=== PATIENT | female | born 1990 | race Caucasian/White ===

== ENCOUNTER 2017-06-05 18:43 | Inpatient (IN) | payer BC, MEDICAID, OTHER, SELFPAY ==
[~2017-06-05] VITALS: Ht 170.2 cm; Wt 62.0 kg
[2017-06-05] MEDS ORDERED: SODIUM CHLORIDE FLUSH 10ML SYR IVF ONE (19:00)
[2017-06-05] MEDS ORDERED: SODIUM CHLORIDE 0.9% 1,000ML IV ONE (19:00)
[2017-06-05] MEDS ORDERED: ONDANSETRON 2MG/ML, 2ML IVPush ONE (19:00)
[2017-06-05] MEDS ORDERED: ONDANSETRON 2MG/ML, 2ML ONE (19:22)
[2017-06-05] MEDS ORDERED: MORPHINE SULFATE 4 MG/ML, 1ML ONE ×2 (19:22→21:03)
[2017-06-05] MEDS: MORPHINE SULFATE 4 MG/ML, 1ML IVPush PRN ×2 (19:26→21:14)
[2017-06-05 19:27] LABS: HEMATOCRIT 41.3 % (34.6-47.8)
[2017-06-05 19:40] LABS: BLOOD UREA NITROGEN 11 mg/dL (7-18)
[2017-06-05] MEDS ORDERED: KETOROLAC 30 MG/1 ML ONE (21:03)
[2017-06-05] MEDS ORDERED: KETOROLAC 30 MG/1 ML IVPush ONE (21:30)
[2017-06-05] MEDS ORDERED: SODIUM CHLORIDE 0.9% 1,000ML IVBOLUS ONE (23:00)
[2017-06-06] MEDS ORDERED: OXYcodone/APAP 5/325MG TABLET PO ONE ×2 (02:00→03:00)
[2017-06-06] MEDS ORDERED: PROMETHAZINE 25MG TABLET PO PRN (02:00)
[2017-06-06] MEDS ORDERED: OXYcodone/APAP 5/325MG TABLET ONE ×2 (02:01→02:50)
[2017-06-06] MEDS ORDERED: ONDANSETRON ODT 4 MG ONE (02:51)
[2017-06-06] MEDS ORDERED: ONDANSETRON 4 MG TABLET PO ONE (03:00)
[2017-06-06 04:18] VITALS: BP 125/84
[2017-06-06 04:30] VITALS: BP 125/84
[2017-06-06] MEDS ORDERED: AMPH15TA PO (04:53)
[2017-06-06] MEDS ORDERED: MORPHINE SULFATE 4 MG/ML, 1ML IVPush PRN (05:30)
[2017-06-06] MEDS: ENOXAPARIN 40 MG/0.4 ML SQ SCH (06:00)
[2017-06-06] MEDS ORDERED: METOCLOPRAMIDE 5 MG/ML, 2ML IVPush PRN (06:00)
[2017-06-06] MEDS ORDERED: PROMETHAZINE 25 MG/ML, 1ML IM PRN (06:00)
[2017-06-06] MEDS ORDERED: POLYETHYLENE GLYCOL 17 GM PACKET PO PRN (06:00)
[2017-06-06] MEDS ORDERED: HYDROcodone/APAP 5/325 TABLET PO PRN (06:00)
[2017-06-06] MEDS ORDERED: ACETAMINOPHEN 325 MG TABLET PO PRN (06:00)
[2017-06-06] MEDS ORDERED: BISACODYL 10 MG SUPP PR PRN (06:00)
[2017-06-06] MEDS: SODIUM CHLORIDE 0.9% 1,000 ML IV SCH ×3 (06:16→20:22)
[2017-06-06] MEDS: ONDANSETRON 2MG/ML, 2ML IVPush PRN ×3 (06:16→23:51)
[2017-06-06 06:25] LABS: HEMATOCRIT 35.5 % (34.6-47.8); WHITE BLOOD COUNT 8.6 x10^3/uL (3.4-10)
[2017-06-06] MEDS: CEFTRIAXONE PMX 1GM/50ML 50 ML IV SCH (06:33)
[2017-06-06 06:35] LABS: ASPARTATE AMINO TRANSFERASE 8 U/L (15-37); BLOOD UREA NITROGEN 6 mg/dL (7-18)
[2017-06-06] MEDS ORDERED: MORPHINE SULFATE 4 MG/ML, 1ML ONE (07:17)
[2017-06-06] MEDS: MORPHINE SULFATE 4 MG/ML, 1ML IVPush PRN ×2 (07:23→23:51)
[2017-06-06 08:38] VITALS: BP 107/70
[2017-06-06] MEDS: PHENAZOPYRIDINE 100 MG TABLET PO SCH ×3 (09:27→20:21)
[2017-06-06] MEDS: POTASSIUM CHLORIDE 20 MEQ TAB.ER.PRT PO SCH ×3 (09:27→20:21)
[2017-06-06] MEDS: KETOROLAC 30 MG/1 ML IVPush PRN ×2 (13:32→20:22)
[2017-06-06 14:16] VITALS: BP 111/76
[2017-06-06] MEDS ORDERED: DIPHENHYDRAMINE 50 MG/ML, 1ML IVPush PRN (17:30)
[2017-06-06 18:51] VITALS: BP 123/81
[2017-06-07 00:45] VITALS: BP 133/88
[2017-06-07] MEDS: SODIUM CHLORIDE 0.9% 1,000 ML IV SCH ×3 (02:12→16:03)
[2017-06-07] MEDS: KETOROLAC 30 MG/1 ML IVPush PRN ×3 (03:49→23:30)
[2017-06-07] MEDS: CEFTRIAXONE PMX 1GM/50ML 50 ML IV SCH (04:50)
[2017-06-07] MEDS: ENOXAPARIN 40 MG/0.4 ML SQ SCH (04:50)
[2017-06-07 05:32] LABS: BLOOD UREA NITROGEN 3 mg/dL (7-18)
[2017-06-07 08:05] VITALS: BP 123/77
[2017-06-07] MEDS: POTASSIUM CHLORIDE 20 MEQ TAB.ER.PRT PO SCH (08:52)
[2017-06-07] MEDS: PHENAZOPYRIDINE 100 MG TABLET PO SCH ×3 (08:53→23:16)
[2017-06-07] MEDS: ONDANSETRON 2MG/ML, 2ML IVPush PRN ×2 (08:58→16:11)
[2017-06-07] MEDS: MORPHINE SULFATE 4 MG/ML, 1ML IVPush PRN ×3 (08:58→21:09)
[2017-06-07] MEDS ORDERED: OMNIPAQUE 350 MG/ML, 100ML BOTTLE ONE (09:23)
[2017-06-07 15:34] VITALS: BP 140/76
[2017-06-07 19:25] VITALS: BP 117/79
[2017-06-07 21:45] LABS: PATH.CAST-FLAG NOT PRESENT; SPERM-FLAG NOT PRESENT; SRC-FLAG NOT PRESENT; XTAL-FLAG NOT PRESENT; YLC-FLAG NOT PRESENT
[2017-06-08] MEDS: SODIUM CHLORIDE 0.9% 1,000 ML IV SCH ×3 (00:58→23:02)
[2017-06-08 01:23] VITALS: BP 115/78
[2017-06-08] MEDS: MORPHINE SULFATE 4 MG/ML, 1ML IVPush PRN ×3 (01:55→16:36)
[2017-06-08] MEDS: ENOXAPARIN 40 MG/0.4 ML SQ SCH (05:41)
[2017-06-08] MEDS: CEFTRIAXONE PMX 1GM/50ML 50 ML IV SCH (05:41)
[2017-06-08] MEDS: KETOROLAC 30 MG/1 ML IVPush PRN ×3 (05:47→20:48)
[2017-06-08 07:02] VITALS: BP 111/71
[2017-06-08] MEDS: PHENAZOPYRIDINE 100 MG TABLET PO SCH ×3 (08:15→23:02)
[2017-06-08 09:20] LABS: BLOOD UREA NITROGEN 7 mg/dL (7-18)
[2017-06-08] MEDS ORDERED: GADOBUTROL 7.5 MMOL/7.5 ML PFS ONE (12:03)
[2017-06-08] MEDS: ONDANSETRON 2MG/ML, 2ML IVPush PRN (12:43)
[2017-06-08 15:40] VITALS: BP 116/79
[2017-06-08] MEDS: OPIUM/BELLADONNA SUPP.RECT 16.2-30 MG PR PRN ×2 (17:39→23:02)
[2017-06-08 19:19] VITALS: BP 119/72
[2017-06-09] MEDS: MORPHINE SULFATE 4 MG/ML, 1ML IVPush PRN ×2 (00:26→09:36)
[2017-06-09 01:15] VITALS: BP 121/74
[2017-06-09] MEDS: KETOROLAC 30 MG/1 ML IVPush PRN ×2 (04:21→12:52)
[2017-06-09] MEDS: SODIUM CHLORIDE 0.9% 1,000 ML IV SCH ×3 (05:20→20:03)
[2017-06-09] MEDS: CEFTRIAXONE PMX 1GM/50ML 50 ML IV SCH (05:20)
[2017-06-09] MEDS: OPIUM/BELLADONNA SUPP.RECT 16.2-30 MG PR PRN ×4 (05:20→21:17)
[2017-06-09] MEDS: ENOXAPARIN 40 MG/0.4 ML SQ SCH (05:28)
[2017-06-09 06:47] VITALS: BP 120/79
[2017-06-09] MEDS: PHENAZOPYRIDINE 100 MG TABLET PO SCH ×3 (09:20→20:58)
[2017-06-09] MEDS: ONDANSETRON 2MG/ML, 2ML IVPush PRN ×2 (09:36→21:17)
[2017-06-09 12:55] VITALS: BP 125/80
[2017-06-09] MEDS ORDERED: TAMSULOSIN 0.4 MG CAP.ER.24H PO ONE (16:00)
[2017-06-09 18:22] VITALS: BP 144/97
[2017-06-09] MEDS: OXYcodone/APAP 5/325MG TABLET PO PRN (20:58)
[2017-06-09] MEDS ORDERED: ALBUTEROL SULFATE 2.5 MG/3 ML ONE (23:18)
[2017-06-10 00:12] VITALS: BP 120/74
[2017-06-10] MEDS: KETOROLAC 30 MG/1 ML IVPush PRN ×3 (00:30→16:36)
[2017-06-10] MEDS: SODIUM CHLORIDE 0.9% 1,000 ML IV SCH ×2 (02:56→12:14)
[2017-06-10] MEDS: CEFTRIAXONE PMX 1GM/50ML 50 ML IV SCH (05:31)
[2017-06-10] MEDS: OXYcodone/APAP 5/325MG TABLET PO PRN ×2 (05:33→12:14)
[2017-06-10] MEDS: ENOXAPARIN 40 MG/0.4 ML SQ SCH (05:35)
[2017-06-10] MEDS: OPIUM/BELLADONNA SUPP.RECT 16.2-30 MG PR PRN ×3 (06:22→16:36)
[2017-06-10 08:07] VITALS: BP 129/83
[2017-06-10] MEDS: PHENAZOPYRIDINE 100 MG TABLET PO SCH ×2 (08:27→16:36)
[2017-06-10] MEDS ORDERED: TAMSULOSIN 0.4 MG CAP.ER.24H PO SCH (09:00)
[2017-06-10] MEDS ORDERED: KETO10TA PO (13:36)
[2017-06-10] MEDS ORDERED: OXYC1TAB7 PO (13:36)
[2017-06-10] MEDS ORDERED: CEFD300C37 PO (13:36)
[2017-06-10] MEDS ORDERED: TAMS-11 PO (13:36)
[2017-06-10] MEDS ORDERED: PHEN-582 PO (13:36)
[2017-06-10] MEDS ORDERED: OPIU1SUP2 PR (13:36)
[2017-06-10 14:00] VITALS: BP 125/81
[2017-06-10] MEDS ORDERED: ACETAMINOPHEN 325 MG TABLET PO PRN (19:30)
[2017-06-10] MEDS ORDERED: POLYETHYLENE GLYCOL 17 GM PACKET PO PRN (19:30)
[2017-06-10] MEDS ORDERED: HYDROcodone/APAP 5/325 TABLET PO PRN (19:30)
[2017-06-10] MEDS ORDERED: BISACODYL 10 MG SUPP PR PRN (19:30)
[2017-06-10] MEDS ORDERED: ALBUTEROL SULFATE 2.5 MG/3 ML NPPB PRN ×2 (19:30)
[2017-06-10] MEDS ORDERED: PROMETHAZINE 25 MG/ML, 1ML IM PRN (19:30)
== END 2017-06-10 19:20 | disposition home or self-care (01) | DRG 690 ==
LOC: ED 23:59 → EDIP 06-06 03:40 → UNDOADMIN 06-06 03:40 → EDIP 06-06 03:42 → 3NE 06-06 04:11
PROVIDERS: ADMIT Internal Medicine
PROC: 0T9B30Z Drainage of Bladder with Drainage Device, Percutaneous Approach (ICD-10-PCS; principal; 2017-06-07)
DX: N10 Acute pyelonephritis (principal); E44.0 Moderate protein-calorie malnutrition; N30.00 Acute cystitis without hematuria; E87.6 Hypokalemia; D72.829 Elevated white blood cell count, unspecified; Z68.21 Body mass index [BMI] 21.0-21.9, adult; Z88.8 Allergy status to other drugs, medicaments and biological substances; Z91.040 Latex allergy status
CPT/HCPCS: 36415; 51702; 72157; 72158; 74176; 74177; 76830; 80048; 80053; 81001; 81003; 82040; 83735; 84100; 84703; 85025; 87086; 94640; 96361; 96374; 96375; 96376; A9585; J0696; J1885; J2405; Q0162; Q9967; J1200; J2765; J7030

== ENCOUNTER 2017-06-25 19:01 | Inpatient (IN) | payer BC ==
[~2017-06-25] VITALS: Ht 170.2 cm; Wt 64.5 kg
[~2017-06-25 19:01] MED LIST: AMPH15TA PO; CEFD300C37 PO; KETO10TA PO; OPIU1SUP2 PR; OXYC1TAB7 PO; PHEN-582 PO; TAMS-11 PO
[2017-06-25] MEDS ORDERED: KETOROLAC 30 MG/1 ML IVPush ONE (20:30)
[2017-06-25] MEDS ORDERED: SODIUM CHLORIDE 0.9% 1,000ML IVBOLUS ONE (20:30)
[2017-06-25] MEDS ORDERED: KETOROLAC 30 MG/1 ML ONE (20:31)
[2017-06-25] MEDS ORDERED: HYDROmorphone 1 MG/ML, 1ML ONE ×2 (20:31→21:51)
[2017-06-25] MEDS: HYDROmorphone 2 MG/ML, 1ML IVPush PRN ×2 (20:48→21:57)
[2017-06-25] MEDS ORDERED: ONDANSETRON 2MG/ML, 2ML IVPush ONE (21:00)
[2017-06-25] MEDS ORDERED: ONDANSETRON 2MG/ML, 2ML ONE (21:18)
[2017-06-25 21:50] LABS: BLOOD UREA NITROGEN 11 mg/dL (7-18)
[2017-06-25] MEDS ORDERED: OPIUM/BELLADONNA SUPP.RECT 16.2-30 MG PR ONE (22:00)
[2017-06-25] MEDS ORDERED: LABETALOL 5MG/ML, 20ML IVPush PRN (23:00)
[2017-06-25] MEDS ORDERED: OXYcodone IR 5MG TABLET PO PRN (23:00)
[2017-06-25] MEDS ORDERED: DOCUSATE 100 MG CAPSULE PO PRN (23:00)
[2017-06-25] MEDS ORDERED: TEMAZEPAM 15 MG CAPSULE PO PRN (23:00)
[2017-06-25] MEDS ORDERED: ACETAMINOPHEN 325 MG TABLET PO PRN (23:00)
[2017-06-25 23:30] VITALS: BP 120/80
[2017-06-26] MEDS ORDERED: OPIUM/BELLADONNA SUPP.RECT 16.2-30 MG PR PRN (00:30)
[2017-06-26] MEDS: OPIUM/BELLADONNA SUPP.RECT 16.2-30 MG PR PRN ×5 (00:32→23:02)
[2017-06-26] MEDS: CEFTRIAXONE PMX 1GM/50ML 50 ML IV SCH (00:34)
[2017-06-26] MEDS: FAMOTIDINE 20 MG/2 ML IVPush SCH ×2 (00:35→08:33)
[2017-06-26] MEDS: morphine SULFATE 10 MG/ML, 1ML IVPush PRN ×5 (01:09→20:52)
[2017-06-26] MEDS: ONDANSETRON 2MG/ML, 2ML IVPush PRN ×3 (01:09→14:32)
[2017-06-26] MEDS ORDERED: OXYB5TAB7 PO (01:22)
[2017-06-26 05:34] LABS: HEMATOCRIT 33.8 % (34.6-47.8); HEMOGLOBIN 11.6 g/dL (11.7-16.4)
[2017-06-26 05:48] LABS: ASPARTATE AMINO TRANSFERASE 12 U/L (15-37); BLOOD UREA NITROGEN 9 mg/dL (7-18)
[2017-06-26 07:13] VITALS: BP 115/74
[2017-06-26] MEDS: TAMSULOSIN 0.4 MG CAP.ER.24H PO SCH ×2 (08:33→20:08)
[2017-06-26] MEDS: SENNA/DOCUSATE TABLET PO SCH (08:49)
[2017-06-26] MEDS: SODIUM CHLORIDE 0.9% 1,000 ML IV SCH (10:00)
[2017-06-26 15:30] VITALS: BP 123/89
[2017-06-26] MEDS ORDERED: HYDROcodone/APAP 5/325 TABLET PO PRN (16:30)
[2017-06-26] MEDS: ONDANSETRON ODT 4 MG PO PRN (17:53)
[2017-06-26] MEDS: PHENAZOPYRIDINE 100 MG TABLET PO SCH ×2 (18:18→21:30)
[2017-06-26 20:22] VITALS: BP 102/64
[2017-06-26] MEDS ORDERED: MORPHINE SULFATE 4 MG/ML, 1ML ONE (20:50)
[2017-06-26] MEDS: OXYBUTYNIN CHLORIDE 5 MG TABLET PO SCH (21:30)
[2017-06-26] MEDS: FAMOTIDINE 20 MG TABLET PO SCH (22:54)
[2017-06-26] MEDS: OXYcodone/APAP 5/325MG TABLET PO PRN (22:54)
[2017-06-26] MEDS ORDERED: LIDOCAINE GEL 2%, 5ML TP ONE (23:00)
[2017-06-27] MEDS: CEFTRIAXONE PMX 1GM/50ML 50 ML IV SCH ×2 (00:15→23:13)
[2017-06-27] MEDS ORDERED: MORPHINE SULFATE 4 MG/ML, 1ML ONE ×2 (01:45→06:11)
[2017-06-27] MEDS: morphine SULFATE 10 MG/ML, 1ML IVPush PRN ×5 (01:48→23:00)
[2017-06-27 03:10] VITALS: BP 90/53
[2017-06-27] MEDS: OPIUM/BELLADONNA SUPP.RECT 16.2-30 MG PR PRN ×3 (05:17→20:34)
[2017-06-27] MEDS: OXYcodone/APAP 5/325MG TABLET PO PRN ×3 (05:19→11:40)
[2017-06-27] MEDS: SODIUM CHLORIDE 0.9% 1,000 ML IV SCH ×2 (05:22→19:00)
[2017-06-27 07:37] VITALS: BP 102/67
[2017-06-27] MEDS: FAMOTIDINE 20 MG TABLET PO SCH ×2 (08:12→20:34)
[2017-06-27] MEDS: OXYBUTYNIN CHLORIDE 5 MG TABLET PO SCH ×3 (08:12→20:34)
[2017-06-27] MEDS: PHENAZOPYRIDINE 100 MG TABLET PO SCH ×3 (08:13→20:35)
[2017-06-27] MEDS: CETIRIZINE 10 MG TABLET PO SCH (08:13)
[2017-06-27] MEDS: SENNA/DOCUSATE TABLET PO SCH (08:13)
[2017-06-27] MEDS: TAMSULOSIN 0.4 MG CAP.ER.24H PO SCH ×2 (08:13→20:34)
[2017-06-27 13:23] VITALS: BP 111/71
[2017-06-27] MEDS ORDERED: OXYcodone IR 5MG TABLET PO PRN (14:30)
[2017-06-27] MEDS: OXYcodone IR 5MG TABLET PO PRN ×3 (15:22→20:35)
[2017-06-27] MEDS: ONDANSETRON ODT 4 MG PO PRN (15:24)
[2017-06-27 19:35] VITALS: BP 109/73
[2017-06-27] MEDS: ONDANSETRON 2MG/ML, 2ML IVPush PRN (23:13)
[2017-06-28] MEDS: OXYcodone IR 5MG TABLET PO PRN ×2 (00:58→05:05)
[2017-06-28 01:21] VITALS: BP 106/67
[2017-06-28] MEDS: morphine SULFATE 10 MG/ML, 1ML IVPush PRN ×6 (02:57→21:58)
[2017-06-28] MEDS: OPIUM/BELLADONNA SUPP.RECT 16.2-30 MG PR PRN ×2 (02:57→20:14)
[2017-06-28 06:55] VITALS: BP 115/72
[2017-06-28] MEDS: FAMOTIDINE 20 MG TABLET PO SCH ×2 (08:35→20:14)
[2017-06-28] MEDS: PHENAZOPYRIDINE 100 MG TABLET PO SCH ×3 (08:35→20:14)
[2017-06-28] MEDS: TAMSULOSIN 0.4 MG CAP.ER.24H PO SCH ×2 (08:35→20:14)
[2017-06-28] MEDS: CETIRIZINE 10 MG TABLET PO SCH (08:36)
[2017-06-28] MEDS: SENNA/DOCUSATE TABLET PO SCH (08:36)
[2017-06-28] MEDS: OXYBUTYNIN CHLORIDE 5 MG TABLET PO SCH ×3 (08:36→20:15)
[2017-06-28] MEDS: ONDANSETRON 2MG/ML, 2ML IVPush PRN ×3 (08:36→18:42)
[2017-06-28] MEDS: SODIUM CHLORIDE 0.9% 1,000 ML IV SCH ×2 (08:44→21:40)
[2017-06-28] MEDS ORDERED: OxyconTIN ER 10 MG TAB.ER PO SCH (09:00)
[2017-06-28] MEDS ORDERED: MAGNESIUM CITRATE 300ML ORAL SOL PO PRN (09:00)
[2017-06-28] MEDS ORDERED: ONDANSETRON 2MG/ML, 2ML IVPush ONE (11:00)
[2017-06-28] MEDS ORDERED: PROMETHAZINE 25 MG/ML, 1ML IM ONE (11:00)
[2017-06-28] MEDS ORDERED: PROMETHAZINE 25 MG/ML, 1ML IM PRN (11:30)
[2017-06-28 13:20] VITALS: BP 119/79
[2017-06-28] MEDS: OXYcodone/APAP 10/325MG TABLET PO PRN ×3 (13:33→23:36)
[2017-06-28] MEDS ORDERED: LORazepam 2 MG/ML, 1ML IVPush PRN (18:00)
[2017-06-28 20:00] VITALS: BP 117/79
[2017-06-29] MEDS: CEFTRIAXONE PMX 1GM/50ML 50 ML IV SCH (01:03)
[2017-06-29] MEDS: ONDANSETRON 2MG/ML, 2ML IVPush PRN ×3 (01:03→19:43)
[2017-06-29] MEDS: morphine SULFATE 10 MG/ML, 1ML IVPush PRN ×4 (01:03→19:43)
[2017-06-29 02:14] VITALS: BP 113/78
[2017-06-29] MEDS: OXYcodone/APAP 10/325MG TABLET PO PRN ×3 (03:44→12:37)
[2017-06-29] MEDS: OPIUM/BELLADONNA SUPP.RECT 16.2-30 MG PR PRN ×2 (05:20→15:27)
[2017-06-29 07:40] VITALS: BP 106/74
[2017-06-29] MEDS ORDERED: BISACODYL 10 MG SUPP PR PRN (08:00)
[2017-06-29] MEDS ORDERED: LACTULOSE 20 GM/30 ML UDC PO PRN (08:00)
[2017-06-29] MEDS: PHENAZOPYRIDINE 100 MG TABLET PO SCH ×3 (08:17→21:09)
[2017-06-29] MEDS: OXYBUTYNIN CHLORIDE 5 MG TABLET PO SCH ×3 (08:17→21:09)
[2017-06-29] MEDS: SENNA/DOCUSATE TABLET PO SCH (08:17)
[2017-06-29] MEDS: TAMSULOSIN 0.4 MG CAP.ER.24H PO SCH ×2 (08:17→21:10)
[2017-06-29] MEDS: CETIRIZINE 10 MG TABLET PO SCH (08:17)
[2017-06-29] MEDS: FAMOTIDINE 20 MG TABLET PO SCH ×2 (08:17→21:10)
[2017-06-29] MEDS: ONDANSETRON ODT 4 MG PO PRN (08:23)
[2017-06-29] MEDS ORDERED: POLYETHYLENE GLYCOL 17 GM PACKET PO ONE (08:30)
[2017-06-29] MEDS: SODIUM CHLORIDE 0.9% 1,000 ML IV SCH (12:37)
[2017-06-29 14:07] VITALS: BP 112/71
[2017-06-29] MEDS ORDERED: METOCLOPRAMIDE 5 MG/ML, 2ML IVPush ONE (15:00)
[2017-06-29] MEDS ORDERED: METHYLNALTREXONE 12 MG/0.6 ML SQ ONE (17:00)
[2017-06-29 19:30] VITALS: BP 112/60
[2017-06-29] MEDS ORDERED: BISACODYL 10 MG SUPP PR ONE (20:30)
[2017-06-29] MEDS: NYSTATIN 500,000 UNITS/5 ML UDC PO SCH (21:53)
[2017-06-29] MEDS ORDERED: maalox/diphenh/lido/sucralfate 5 ML PO PRN (22:00)
[2017-06-30] MEDS: SODIUM CHLORIDE 0.9% 1,000 ML IV SCH ×2 (00:41→16:31)
[2017-06-30] MEDS: CEFTRIAXONE PMX 1GM/50ML 50 ML IV SCH (00:41)
[2017-06-30] MEDS: morphine SULFATE 10 MG/ML, 1ML IVPush PRN ×3 (02:15→11:01)
[2017-06-30] MEDS: ONDANSETRON 2MG/ML, 2ML IVPush PRN ×3 (02:15→22:45)
[2017-06-30 02:27] VITALS: BP 116/73
[2017-06-30] MEDS: OXYcodone/APAP 10/325MG TABLET PO PRN ×3 (04:42→13:21)
[2017-06-30] MEDS: NYSTATIN 500,000 UNITS/5 ML UDC PO SCH ×4 (06:27→20:26)
[2017-06-30 08:15] VITALS: BP 123/79
[2017-06-30] MEDS: TAMSULOSIN 0.4 MG CAP.ER.24H PO SCH ×2 (08:45→20:26)
[2017-06-30] MEDS: FAMOTIDINE 20 MG TABLET PO SCH ×2 (08:45→20:26)
[2017-06-30] MEDS: SENNA/DOCUSATE TABLET PO SCH (08:45)
[2017-06-30] MEDS: PHENAZOPYRIDINE 100 MG TABLET PO SCH ×3 (08:46→20:26)
[2017-06-30] MEDS: OXYBUTYNIN CHLORIDE 5 MG TABLET PO SCH ×3 (08:46→20:26)
[2017-06-30] MEDS: CETIRIZINE 10 MG TABLET PO SCH (08:46)
[2017-06-30] MEDS: PROMETHAZINE 25 MG SUPP PR PRN (11:01)
[2017-06-30 14:09] VITALS: BP 121/79
[2017-06-30] MEDS: ONDANSETRON ODT 4 MG PO PRN (15:02)
[2017-06-30] MEDS ORDERED: PROCHLORPERAZINE 5 MG/ML, 2ML IVPush ONE (17:00)
[2017-06-30] MEDS: KETOROLAC 30 MG/1 ML IVPush PRN ×2 (17:20→22:45)
[2017-06-30] MEDS: METHOCARBAMOL 750 MG TABLET PO PRN (17:20)
[2017-06-30 20:45] VITALS: BP 118/74
[2017-07-01] MEDS: CEFTRIAXONE PMX 1GM/50ML 50 ML IV SCH (00:04)
[2017-07-01] MEDS ORDERED: PROMETHAZINE 25 MG/ML, 1ML IM PRN (00:30)
[2017-07-01] MEDS ORDERED: TEMAZEPAM 15 MG CAPSULE PO PRN (00:30)
[2017-07-01] MEDS ORDERED: LABETALOL 5MG/ML, 20ML IVPush PRN (00:30)
[2017-07-01] MEDS ORDERED: ACETAMINOPHEN 325 MG TABLET PO PRN (00:30)
[2017-07-01 02:06] VITALS: BP 112/75
[2017-07-01] MEDS: ONDANSETRON 2MG/ML, 2ML IVPush PRN ×3 (04:47→17:39)
[2017-07-01] MEDS: KETOROLAC 30 MG/1 ML IVPush PRN ×3 (04:47→17:39)
[2017-07-01] MEDS: OXYcodone/APAP 10/325MG TABLET PO PRN ×5 (05:54→22:28)
[2017-07-01] MEDS: METHOCARBAMOL 750 MG TABLET PO PRN ×3 (05:56→18:44)
[2017-07-01] MEDS: NYSTATIN 500,000 UNITS/5 ML UDC PO SCH ×4 (05:58→21:02)
[2017-07-01 07:04] LABS: HEMATOCRIT 37.4 % (34.6-47.8); HEMOGLOBIN 12.9 g/dL (11.7-16.4); WHITE BLOOD COUNT 6.2 x10^3/uL (3.4-10)
[2017-07-01 07:17] LABS: ASPARTATE AMINO TRANSFERASE 15 U/L (15-37); BLOOD UREA NITROGEN 5 mg/dL (7-18)
[2017-07-01] MEDS: PROMETHAZINE 25 MG SUPP PR PRN (08:57)
[2017-07-01 08:59] VITALS: BP 123/79
[2017-07-01] MEDS: TAMSULOSIN 0.4 MG CAP.ER.24H PO SCH ×2 (11:14→21:01)
[2017-07-01] MEDS: OXYBUTYNIN CHLORIDE 5 MG TABLET PO SCH ×3 (11:14→21:01)
[2017-07-01] MEDS: FAMOTIDINE 20 MG TABLET PO SCH ×2 (11:14→21:01)
[2017-07-01] MEDS: SENNA/DOCUSATE TABLET PO SCH (11:14)
[2017-07-01] MEDS: CETIRIZINE 10 MG TABLET PO SCH (11:15)
[2017-07-01] MEDS: PHENAZOPYRIDINE 100 MG TABLET PO SCH ×3 (11:15→21:01)
[2017-07-01] MEDS: SODIUM CHLORIDE 0.9% 1,000 ML IV SCH ×2 (11:33→21:40)
[2017-07-01] MEDS ORDERED: OMNIPAQUE 350 MG/ML, 100ML BOTTLE ONE (12:06)
[2017-07-01] MEDS: PROCHLORPERAZINE 10MG TABLET PO PRN ×2 (14:25→21:15)
[2017-07-01 15:46] VITALS: BP 109/70
[2017-07-01 19:34] VITALS: BP 116/80
[2017-07-02] MEDS: CEFTRIAXONE PMX 1GM/50ML 50 ML IV SCH (00:04)
[2017-07-02] MEDS ORDERED: OXYcodone/APAP 10/325MG TABLET PO PRN (01:00)
[2017-07-02] MEDS: ONDANSETRON 2MG/ML, 2ML IVPush PRN (01:06)
[2017-07-02] MEDS: KETOROLAC 30 MG/1 ML IVPush PRN ×2 (01:06→13:18)
[2017-07-02 01:14] VITALS: BP 110/76
[2017-07-02] MEDS: METHOCARBAMOL 750 MG TABLET PO PRN ×3 (01:33→18:47)
[2017-07-02] MEDS: OXYcodone/APAP 10/325MG TABLET PO PRN ×4 (03:34→18:20)
[2017-07-02] MEDS: NYSTATIN 500,000 UNITS/5 ML UDC PO SCH ×3 (06:33→16:09)
[2017-07-02 07:50] VITALS: BP 128/80
[2017-07-02] MEDS: PROCHLORPERAZINE 10MG TABLET PO PRN (09:14)
[2017-07-02] MEDS: OXYBUTYNIN CHLORIDE 5 MG TABLET PO SCH ×2 (09:17→16:09)
[2017-07-02] MEDS: SENNA/DOCUSATE TABLET PO SCH (09:17)
[2017-07-02] MEDS: FAMOTIDINE 20 MG TABLET PO SCH (09:17)
[2017-07-02] MEDS: PHENAZOPYRIDINE 100 MG TABLET PO SCH ×2 (09:17→16:09)
[2017-07-02] MEDS: CETIRIZINE 10 MG TABLET PO SCH (09:18)
[2017-07-02] MEDS: TAMSULOSIN 0.4 MG CAP.ER.24H PO SCH (09:18)
[2017-07-02] MEDS: SODIUM CHLORIDE 0.9% 1,000 ML IV SCH (12:23)
[2017-07-02] MEDS ORDERED: LIDOCAINE GEL 2%, 5ML TP ONE (12:27)
[2017-07-02 15:40] VITALS: BP 113/76
[2017-07-02] MEDS: OPIUM/BELLADONNA SUPP.RECT 16.2-30 MG PR PRN (16:12)
[2017-07-02] MEDS ORDERED: TAMS-11 PO (16:21)
[2017-07-02] MEDS ORDERED: OPIU1SUP2 PR (16:21)
[2017-07-02] MEDS ORDERED: METH750T2 PO (16:21)
[2017-07-02] MEDS ORDERED: CETI10TA18 PO (16:21)
[2017-07-02] MEDS ORDERED: OXYC1TAB9 PO (16:21)
[2017-07-02] MEDS ORDERED: OXYB5TAB7 PO (16:21)
[2017-07-02] MEDS ORDERED: ONDA4TAB13 PO (16:21)
[2017-07-02] MEDS ORDERED: PROC10TA78 PO (16:21)
== END 2017-07-02 20:00 | disposition home or self-care (01) | DRG 700 ==
LOC: ED 23:00 → EDIP 23:01 → 4EST 23:16 → 3NW 06-26 16:33 → OBSVTOIN 06-27 15:06
PROVIDERS: ADMIT Internal Medicine; ATTEND Internal Medicine
PROC: 0T9B70Z Drainage of Bladder with Drainage Device, Via Natural or Artificial Opening (ICD-10-PCS; principal; 2017-06-25)
DX: T83.031A Leakage of indwelling urethral catheter, initial encounter (principal); N30.11 Interstitial cystitis (chronic) with hematuria; N32.89 Other specified disorders of bladder; F90.9 Attention-deficit hyperactivity disorder, unspecified type; K59.00 Constipation, unspecified; N83.202 Unspecified ovarian cyst, left side; Y73.8 Miscellaneous gastroenterology and urology devices associated with adverse incidents, not elsewhere classified; Z88.8 Allergy status to other drugs, medicaments and biological substances; Z91.040 Latex allergy status
CPT/HCPCS: 36415; 74177; 76700; 80048; 80053; 81001; 84703; 85025; 87086; 96361; 96374; 96375; G0378; J0696; J1170; J1885; J2405; Q0162; Q0164; Q9967; J0780; J2060; J2270; J2765; J7030; S0028

== ENCOUNTER 2017-08-25 22:34 | Inpatient (IN) | payer BC ==
[~2017-08-25] VITALS: Ht 170.2 cm; Wt 68.9 kg
[~2017-08-25 22:34] MED LIST changes: +CETI10TA18 PO; +METH750T2 PO; +ONDA4TAB13 PO; +OXYB5TAB7 PO; +OXYC1TAB9 PO; +PROC10TA78 PO
[2017-08-25] MEDS ORDERED: KETOROLAC 30 MG/1 ML ONE (23:20)
[2017-08-25] MEDS ORDERED: HYDROmorphone 1 MG/ML, 1ML ONE (23:20)
[2017-08-25] MEDS ORDERED: ONDANSETRON 2MG/ML, 2ML ONE (23:20)
[2017-08-25 23:21] LABS: PATH.CAST-FLAG NOT PRESENT; SPERM-FLAG NOT PRESENT; SRC-FLAG NOT PRESENT; XTAL-FLAG NOT PRESENT; YLC-FLAG NOT PRESENT
[2017-08-25] MEDS ORDERED: ONDANSETRON 2MG/ML, 2ML IVPush ONE (23:30)
[2017-08-25] MEDS ORDERED: SODIUM CHLORIDE 0.9% 1,000ML IVBOLUS ONE (23:30)
[2017-08-25] MEDS ORDERED: KETOROLAC 30 MG/1 ML IVPush ONE (23:30)
[2017-08-25 23:31] LABS: WHITE BLOOD COUNT 8.1 x10^3/uL (3.4-10)
[2017-08-25] MEDS: HYDROmorphone 1 MG/ML, 1ML IVPush PRN (23:34)
[2017-08-25 23:38] LABS: BLOOD UREA NITROGEN 12 mg/dL (7-18)
[2017-08-25] MEDS ORDERED: OMNIPAQUE 350 MG/ML, 100ML BOTTLE ONE (23:40)
[2017-08-25 23:42] LABS: ASPARTATE AMINO TRANSFERASE 9 U/L (15-37)
[2017-08-26] MEDS ORDERED: HYDROmorphone 1 MG/ML, 1ML ONE ×2 (00:35→02:06)
[2017-08-26] MEDS: HYDROmorphone 1 MG/ML, 1ML IVPush PRN (00:43)
[2017-08-26] MEDS ORDERED: CEFTRIAXONE PMX 1GM/50ML 50 ML IV ONE (01:30)
[2017-08-26] MEDS ORDERED: CEFTRIAXONE PMX 1GM/50ML 50 ML ONE (01:32)
[2017-08-26] MEDS ORDERED: HYDROmorphone 1 MG/ML, 1ML IV ONE (02:00)
[2017-08-26] MEDS ORDERED: ONDANSETRON 2MG/ML, 2ML ONE (02:15)
[2017-08-26] MEDS ORDERED: ONDANSETRON 2MG/ML, 2ML IVPush ONE (02:30)
[2017-08-26] MEDS ORDERED: POLYETHYLENE GLYCOL 17 GM PACKET PO PRN (03:00)
[2017-08-26] MEDS ORDERED: ACETAMINOPHEN 325 MG TABLET PO PRN (03:00)
[2017-08-26] MEDS ORDERED: CEFTRIAXONE PMX 1GM/50ML 50 ML IV SCH (03:00)
[2017-08-26] MEDS ORDERED: hydrALAzine 20 MG/ML, 1ML IVPush PRN (03:00)
[2017-08-26] MEDS ORDERED: HEPARIN 5,000 UNITS/ML, 1ML SQ SCH (03:00)
[2017-08-26 03:08] VITALS: BP 118/75
[2017-08-26] MEDS: SODIUM CHLORIDE 0.9% 1,000 ML IV SCH ×2 (04:03→09:30)
[2017-08-26] MEDS: HYDROmorphone 2 MG/ML, 1ML IVPush PRN ×6 (05:49→23:38)
[2017-08-26 06:46] VITALS: BP 108/73
[2017-08-26] MEDS ORDERED: methylPREDNISolone SOD SUCC 125 MG/2 ML IVPush ONE (09:30)
[2017-08-26] MEDS ORDERED: PROMETHAZINE 25 MG/ML, 1ML IM PRN (10:00)
[2017-08-26] MEDS: ACETAMINOPHEN 500 MG TABLET PO SCH ×2 (12:01→20:20)
[2017-08-26] MEDS: ONDANSETRON 2MG/ML, 2ML IVPush PRN ×3 (12:01→21:31)
[2017-08-26] MEDS: KETOROLAC 30 MG/1 ML IVPush SCH ×3 (12:01→23:38)
[2017-08-26] MEDS: OXYcodone IR 5MG TABLET PO PRN ×2 (12:02→16:04)
[2017-08-26] MEDS: PHENAZOPYRIDINE 200 MG TABLET PO SCH ×3 (12:02→20:21)
[2017-08-26] MEDS: FAMOTIDINE 20 MG/2 ML IVPush SCH ×2 (12:02→20:20)
[2017-08-26] MEDS: LACTATED RINGERS 1,000 ML IV SCH ×2 (12:13→20:21)
[2017-08-26 12:30] VITALS: BP 109/76
[2017-08-26] MEDS: ENOXAPARIN 40 MG/0.4 ML SQ SCH (20:00)
[2017-08-26 20:13] VITALS: BP 104/67
[2017-08-26] MEDS: DOCUSATE 100 MG CAPSULE PO PRN (20:23)
[2017-08-26] MEDS ORDERED: DIPHENHYDRAMINE 25 MG CAPSULE PO ONE (21:00)
[2017-08-26] MEDS ORDERED: DIPHENHYDRAMINE 50 MG/ML, 1ML IVPush ONE (21:00)
[2017-08-27] MEDS: OXYcodone IR 5MG TABLET PO PRN ×5 (00:56→20:45)
[2017-08-27 01:04] VITALS: BP 106/64
[2017-08-27] MEDS: CEFTRIAXONE PMX 2GM/50ML 50 ML IV SCH (01:20)
[2017-08-27] MEDS: ONDANSETRON 2MG/ML, 2ML IVPush PRN ×5 (01:20→20:49)
[2017-08-27] MEDS: HYDROmorphone 2 MG/ML, 1ML IVPush PRN ×7 (02:21→21:53)
[2017-08-27 04:27] LABS: HEMATOCRIT 37.7 % (34.6-47.8); HEMOGLOBIN 12.8 g/dL (11.7-16.4); WHITE BLOOD COUNT 12.7 x10^3/uL (3.4-10)
[2017-08-27] MEDS: ACETAMINOPHEN 500 MG TABLET PO SCH (04:27)
[2017-08-27 04:28] LABS: ASPARTATE AMINO TRANSFERASE 26 U/L (15-37); BLOOD UREA NITROGEN 8 mg/dL (7-18)
[2017-08-27] MEDS: KETOROLAC 30 MG/1 ML IVPush SCH (05:47)
[2017-08-27 06:39] VITALS: BP 98/53
[2017-08-27] MEDS: PHENAZOPYRIDINE 200 MG TABLET PO SCH ×3 (09:03→20:45)
[2017-08-27] MEDS: FAMOTIDINE 20 MG/2 ML IVPush SCH ×2 (09:03→20:45)
[2017-08-27] MEDS: DOCUSATE 100 MG CAPSULE PO PRN (09:03)
[2017-08-27] MEDS: LACTATED RINGERS 1,000 ML IV SCH ×2 (09:03→18:41)
[2017-08-27 10:02] VITALS: BP 117/77
[2017-08-27 14:28] VITALS: BP 115/79
[2017-08-27] MEDS: OXYBUTYNIN CHLORIDE 5 MG TABLET PO SCH ×2 (14:52→20:45)
[2017-08-27] MEDS ORDERED: DIPHENHYDRAMINE 50 MG/ML, 1ML IVPush ONE (18:30)
[2017-08-27] MEDS: ENOXAPARIN 40 MG/0.4 ML SQ SCH (20:00)
[2017-08-27 20:12] VITALS: BP 123/83
[2017-08-27] MEDS ORDERED: DIPHENHYDRAMINE 50 MG/ML, 1ML ONE (23:39)
[2017-08-28] MEDS: HYDROmorphone 2 MG/ML, 1ML IVPush PRN ×6 (01:14→21:29)
[2017-08-28] MEDS: ONDANSETRON 2MG/ML, 2ML IVPush PRN ×5 (01:14→21:29)
[2017-08-28] MEDS: CEFTRIAXONE PMX 2GM/50ML 50 ML IV SCH (01:19)
[2017-08-28 01:21] VITALS: BP 102/66
[2017-08-28] MEDS: OXYcodone IR 5MG TABLET PO PRN ×2 (03:04→06:25)
[2017-08-28] MEDS: LACTATED RINGERS 1,000 ML IV SCH ×2 (06:24→16:40)
[2017-08-28] MEDS: OXYBUTYNIN CHLORIDE 5 MG TABLET PO SCH ×4 (06:24→21:00)
[2017-08-28 07:19] VITALS: BP 111/60
[2017-08-28] MEDS: FAMOTIDINE 20 MG/2 ML IVPush SCH ×2 (09:05→21:29)
[2017-08-28] MEDS: PHENAZOPYRIDINE 200 MG TABLET PO SCH ×3 (09:05→21:29)
[2017-08-28] MEDS: SUMATRIPTAN 50 MG TABLET PO PRN ×2 (11:20→22:59)
[2017-08-28 15:45] VITALS: BP 135/89
[2017-08-28 19:39] VITALS: BP 131/90
[2017-08-28] MEDS: ENOXAPARIN 40 MG/0.4 ML SQ SCH (21:00)
[2017-08-28] MEDS: SENNA/DOCUSATE TABLET PO SCH (21:29)
[2017-08-28] MEDS: FENTANYL 25 MCG PATCH TD SCH (22:59)
[2017-08-29] MEDS: HYDROmorphone 2 MG/ML, 1ML IVPush PRN ×6 (00:27→21:54)
[2017-08-29 00:32] VITALS: BP 124/81
[2017-08-29 00:48] LABS: PATH.CAST-FLAG NOT PRESENT; SPERM-FLAG NOT PRESENT; SRC-FLAG NOT PRESENT; XTAL-FLAG NOT PRESENT; YLC-FLAG NOT PRESENT
[2017-08-29] MEDS: ONDANSETRON 2MG/ML, 2ML IVPush PRN ×3 (02:17→10:38)
[2017-08-29] MEDS: OXYcodone IR 5MG TABLET PO PRN (02:17)
[2017-08-29] MEDS: CEFTRIAXONE PMX 2GM/50ML 50 ML IV SCH (02:17)
[2017-08-29 04:48] LABS: HEMOGLOBIN 12.9 g/dL (11.7-16.4); WHITE BLOOD COUNT 8.5 x10^3/uL (3.4-10)
[2017-08-29 04:59] LABS: BLOOD UREA NITROGEN 5 mg/dL (7-18)
[2017-08-29] MEDS: SUMATRIPTAN 50 MG TABLET PO PRN ×2 (05:08→23:43)
[2017-08-29] MEDS: OXYBUTYNIN CHLORIDE 5 MG TABLET PO SCH ×4 (06:00→19:43)
[2017-08-29 06:49] VITALS: BP 110/71
[2017-08-29] MEDS: FAMOTIDINE 20 MG/2 ML IVPush SCH (10:38)
[2017-08-29] MEDS: PHENAZOPYRIDINE 200 MG TABLET PO SCH ×3 (10:38→19:43)
[2017-08-29] MEDS: SENNA/DOCUSATE TABLET PO SCH ×2 (10:38→19:43)
[2017-08-29 13:33] VITALS: BP 122/84
[2017-08-29] MEDS: SODIUM CHLORIDE 0.9% 1,000 ML IV SCH (15:32)
[2017-08-29 18:50] VITALS: BP 112/74
[2017-08-29] MEDS: PROMETHAZINE 25MG TABLET PO PRN (19:43)
[2017-08-29] MEDS: FAMOTIDINE 20 MG TABLET PO SCH (19:43)
[2017-08-29] MEDS: ENOXAPARIN 40 MG/0.4 ML SQ SCH (19:44)
[2017-08-30] MEDS: SODIUM CHLORIDE 0.9% 1,000 ML IV SCH ×3 (02:16→21:30)
[2017-08-30] MEDS: HYDROmorphone 2 MG/ML, 1ML IVPush PRN ×6 (02:16→20:19)
[2017-08-30] MEDS: CEFTRIAXONE PMX 2GM/50ML 50 ML IV SCH (02:16)
[2017-08-30] MEDS: OXYcodone IR 5MG TABLET PO PRN ×3 (04:33→22:50)
[2017-08-30] MEDS: OXYBUTYNIN CHLORIDE 5 MG TABLET PO SCH ×4 (04:34→20:20)
[2017-08-30] MEDS: PROMETHAZINE 25MG TABLET PO PRN ×2 (04:34→14:42)
[2017-08-30 04:36] VITALS: BP 121/83
[2017-08-30 04:44] LABS: HEMATOCRIT 38.8 % (34.6-47.8); HEMOGLOBIN 13.1 g/dL (11.7-16.4); WHITE BLOOD COUNT 6.4 x10^3/uL (3.4-10)
[2017-08-30 04:53] LABS: BLOOD UREA NITROGEN 11 mg/dL (7-18)
[2017-08-30 06:34] VITALS: BP 113/78
[2017-08-30] MEDS: FAMOTIDINE 20 MG TABLET PO SCH ×2 (08:33→20:20)
[2017-08-30] MEDS: SENNA/DOCUSATE TABLET PO SCH ×2 (08:33→20:20)
[2017-08-30] MEDS: PHENAZOPYRIDINE 200 MG TABLET PO SCH ×3 (08:33→20:20)
[2017-08-30] MEDS: DIPHENHYDRAMINE 50 MG/ML, 1ML IVPush PRN (10:44)
[2017-08-30 12:16] VITALS: BP 117/82
[2017-08-30] MEDS: SUMATRIPTAN 50 MG TABLET PO PRN (14:39)
[2017-08-30] MEDS ORDERED: POLYETHYLENE GLYCOL 17 GM PACKET PO PRN (19:00)
[2017-08-30 19:51] VITALS: BP 113/77
[2017-08-30] MEDS: MAGNESIUM CITRATE 300ML ORAL SOL PO ONE (20:00)
[2017-08-30] MEDS: ENOXAPARIN 40 MG/0.4 ML SQ SCH (20:21)
[2017-08-31] MEDS: HYDROmorphone 2 MG/ML, 1ML IVPush PRN ×7 (00:26→23:47)
[2017-08-31 01:24] VITALS: BP 116/77
[2017-08-31] MEDS: SUMATRIPTAN 50 MG TABLET PO PRN ×2 (01:57→14:44)
[2017-08-31] MEDS: CEFTRIAXONE PMX 2GM/50ML 50 ML IV SCH (01:57)
[2017-08-31] MEDS: ONDANSETRON 2MG/ML, 2ML IVPush PRN ×2 (02:04→09:56)
[2017-08-31] MEDS: SODIUM CHLORIDE 0.9% 1,000 ML IV SCH ×2 (03:38→21:42)
[2017-08-31] MEDS: OXYBUTYNIN CHLORIDE 5 MG TABLET PO SCH ×4 (05:07→21:42)
[2017-08-31 06:45] VITALS: BP 115/76
[2017-08-31] MEDS: OXYcodone IR 5MG TABLET PO PRN ×2 (07:30→17:50)
[2017-08-31] MEDS: FAMOTIDINE 20 MG TABLET PO SCH ×2 (09:44→21:42)
[2017-08-31] MEDS: SENNA/DOCUSATE TABLET PO SCH ×2 (09:44→21:42)
[2017-08-31] MEDS: PHENAZOPYRIDINE 200 MG TABLET PO SCH ×3 (09:44→21:42)
[2017-08-31] MEDS: MAGNESIUM CITRATE 300ML ORAL SOL PO ONE (09:46)
[2017-08-31] MEDS ORDERED: FENT1PAT75 TD (11:37)
[2017-08-31] MEDS ORDERED: SENN1TAB7 PO (11:37)
[2017-08-31] MEDS ORDERED: ONDA8TAB9 PO (11:37)
[2017-08-31] MEDS ORDERED: OXYC5TAB3 PO (11:37)
[2017-08-31] MEDS ORDERED: POLY17PO5 PO (11:37)
[2017-08-31] MEDS ORDERED: CEFD300C37 PO (11:37)
[2017-08-31] MEDS: PROMETHAZINE 25MG TABLET PO PRN (13:19)
[2017-08-31] MEDS: BISACODYL 10 MG SUPP PR PRN (13:20)
[2017-08-31 14:27] VITALS: BP 136/78
[2017-08-31 19:21] VITALS: BP 120/81
[2017-08-31] MEDS: ENOXAPARIN 40 MG/0.4 ML SQ SCH (21:00)
[2017-08-31] MEDS: DIPHENHYDRAMINE 50 MG/ML, 1ML IVPush PRN (22:03)
[2017-08-31] MEDS: FENTANYL 25 MCG PATCH TD SCH (22:03)
[2017-09-01 01:08] VITALS: BP 102/69
[2017-09-01] MEDS: PROMETHAZINE 25MG TABLET PO PRN (01:40)
[2017-09-01] MEDS: CEFTRIAXONE PMX 2GM/50ML 50 ML IV SCH (01:40)
[2017-09-01] MEDS: SUMATRIPTAN 50 MG TABLET PO PRN ×2 (01:40→11:10)
[2017-09-01] MEDS: HYDROmorphone 2 MG/ML, 1ML IVPush PRN ×5 (03:01→16:11)
[2017-09-01] MEDS: DIPHENHYDRAMINE 50 MG/ML, 1ML IVPush PRN ×2 (06:07→16:11)
[2017-09-01] MEDS: OXYBUTYNIN CHLORIDE 5 MG TABLET PO SCH ×3 (06:08→15:59)
[2017-09-01] MEDS ORDERED: maalox/diphenh/lido/sucralfate 5 ML PO PRN (06:30)
[2017-09-01 06:31] VITALS: BP 110/77
[2017-09-01] MEDS: NYSTATIN 500,000 UNITS/5 ML UDC PO SCH ×3 (08:12→16:09)
[2017-09-01] MEDS: OXYcodone IR 5MG TABLET PO PRN (08:26)
[2017-09-01] MEDS: SENNA/DOCUSATE TABLET PO SCH (09:38)
[2017-09-01] MEDS: PHENAZOPYRIDINE 200 MG TABLET PO SCH ×2 (09:38→15:59)
[2017-09-01] MEDS: FAMOTIDINE 20 MG TABLET PO SCH (09:38)
[2017-09-01] MEDS: SODIUM CHLORIDE 0.9% 1,000 ML IV SCH (10:03)
[2017-09-01] MEDS: BISACODYL 10 MG SUPP PR PRN (10:03)
[2017-09-01 12:38] VITALS: BP 109/74
[2017-09-01] MEDS ORDERED: HYDR8TAB PO (14:36)
[2017-09-01] MEDS ORDERED: HYDR2VIA2 PO (14:47)
[2017-09-01] MEDS ORDERED: PIPERACILLIN/TAZO/PMX 3.375GM 50 ML IV SCH (15:30)
[2017-09-01] MEDS ORDERED: NYST1000 PO (16:05)
[2017-09-01 16:11] LABS: HEMATOCRIT 43.7 % (34.6-47.8); HEMOGLOBIN 14.8 g/dL (11.7-16.4); WHITE BLOOD COUNT 7.1 x10^3/uL (3.4-10)
[2017-09-01 16:21] LABS: ASPARTATE AMINO TRANSFERASE 26 U/L (15-37); BLOOD UREA NITROGEN 7 mg/dL (7-18)
== END 2017-09-01 17:46 | disposition home or self-care (01) | DRG 690 ==
LOC: ED 22:59 → EDIP 08-26 01:58 → 3NW 08-26 02:47
PROVIDERS: ADMIT Internal Medicine; ATTEND Internal Medicine
DX: N39.0 Urinary tract infection, site not specified (principal); R18.8 Other ascites; B96.20 Unspecified Escherichia coli [E. coli] as the cause of diseases classified elsewhere; K76.9 Liver disease, unspecified; N20.0 Calculus of kidney; N32.89 Other specified disorders of bladder; N88.8 Other specified noninflammatory disorders of cervix uteri; R33.9 Retention of urine, unspecified; T36.1X5A Adverse effect of cephalosporins and other beta-lactam antibiotics, initial encounter; Z87.440 Personal history of urinary (tract) infections; Z98.51 Tubal ligation status; Z88.1 Allergy status to other antibiotic agents; Z88.8 Allergy status to other drugs, medicaments and biological substances; Z88.6 Allergy status to analgesic agent; Z91.041 Radiographic dye allergy status; Z91.040 Latex allergy status
CPT/HCPCS: 36415; 74176; 74177; 74183; 76830; 80048; 80053; 80061; 81001; 83036; 83690; 83735; 84439; 84443; 84703; 85025; 87040; 87070; 87077; 87086; 87186; 96365; 96375; 96376; J0696; J1170; J1885; J2405; J2550; Q0169; Q9967; J1200; J2930; J7030; J7120; S0028

== ENCOUNTER 2017-09-17 21:06 | Inpatient (IN) | payer BC ==
[~2017-09-17] VITALS: Ht 170.2 cm; Wt 70.5 kg
[~2017-09-17 21:06] MED LIST changes: +FENT1PAT75 TD; +HYDR2VIA2 PO; +HYDR8TAB PO; +NYST1000 PO; +ONDA8TAB9 PO; +OXYC5TAB3 PO; +POLY17PO5 PO; +SENN1TAB7 PO
[2017-09-17] MEDS ORDERED: ONDANSETRON 2MG/ML, 2ML ONE (21:54)
[2017-09-17] MEDS ORDERED: HYDROmorphone 1 MG/ML, 1ML ONE (21:54)
[2017-09-17] MEDS ORDERED: ONDANSETRON 2MG/ML, 2ML IVPush ONE (22:00)
[2017-09-17] MEDS ORDERED: SODIUM CHLORIDE 0.9% 1,000ML IVBOLUS ONE (22:00)
[2017-09-17] MEDS ORDERED: SODIUM CHLORIDE FLUSH 10ML SYR IVF ONE (22:00)
[2017-09-17 22:22] LABS: HEMATOCRIT 35.6 % (34.6-47.8); HEMOGLOBIN 12.1 g/dL (11.7-16.4); WHITE BLOOD COUNT 8.2 x10^3/uL (3.4-10)
[2017-09-17 22:36] LABS: ASPARTATE AMINO TRANSFERASE 13 U/L (15-37); BLOOD UREA NITROGEN 10 mg/dL (7-18)
[2017-09-17] MEDS: HYDROmorphone 1 MG/ML, 1ML IVPush PRN (23:02)
[2017-09-18] MEDS ORDERED: HYDROmorphone 1 MG/ML, 1ML ONE ×2 (00:37→02:09)
[2017-09-18] MEDS ORDERED: KETOROLAC 30 MG/1 ML ONE (00:49)
[2017-09-18] MEDS: HYDROmorphone 1 MG/ML, 1ML IVPush PRN (01:00)
[2017-09-18] MEDS ORDERED: KETOROLAC 30 MG/1 ML IVPush ONE (01:00)
[2017-09-18] MEDS ORDERED: VANCOMYCIN 1,200 MG in SODIUM CHLORIDE 0.9% 250 ML IV ONE (01:00)
[2017-09-18] MEDS ORDERED: AMPICILLIN/SULBACTAM 3 GM in SODIUM CHLORIDE 0.9% 100 ML IV ONE (01:00)
[2017-09-18] MEDS ORDERED: VANCOMYCIN PER PHARMACY MC PRN ×2 (01:00→04:30)
[2017-09-18] MEDS ORDERED: DIPHENHYDRAMINE 25 MG CAPSULE PO ONE (01:30)
[2017-09-18] MEDS ORDERED: DIPHENHYDRAMINE 50 MG CAPSULE ONE (01:36)
[2017-09-18 02:00] VITALS: BP 105/66
[2017-09-18] MEDS ORDERED: SODIUM CHLORIDE 0.9% 1,000 ML IV ONE (02:01)
[2017-09-18] MEDS ORDERED: PROM12.553 RC (02:20)
[2017-09-18] MEDS ORDERED: GABA600T2 PO (02:21)
[2017-09-18] MEDS ORDERED: DIPH25CA61 PO (02:21)
[2017-09-18] MEDS ORDERED: IBUP-1222 PO (02:22)
[2017-09-18] MEDS ORDERED: ONDANSETRON 2MG/ML, 2ML IVPush PRN (02:30)
[2017-09-18] MEDS ORDERED: PROMETHAZINE 25 MG/ML, 1ML IM PRN (02:30)
[2017-09-18] MEDS ORDERED: OXYcodone IR 5MG TABLET PO PRN (04:30)
[2017-09-18] MEDS: ENOXAPARIN 40 MG/0.4 ML SQ SCH (04:30)
[2017-09-18] MEDS ORDERED: ACETAMINOPHEN 325 MG TABLET PO PRN (04:30)
[2017-09-18] MEDS: SODIUM CHLORIDE 0.9% 1,000 ML IV SCH ×3 (04:55→22:21)
[2017-09-18] MEDS ORDERED: PHARMACOKINETIC MONITORING MC PRN (05:00)
[2017-09-18] MEDS ORDERED: HYDROmorphone 2MG TABLET PO PRN (05:30)
[2017-09-18] MEDS: CEFTRIAXONE PMX 1GM/50ML 50 ML IV SCH (06:37)
[2017-09-18] MEDS: ONDANSETRON 2MG/ML, 2ML IVPush PRN ×3 (06:37→21:07)
[2017-09-18 06:59] VITALS: BP 101/74
[2017-09-18] MEDS: HYDROmorphone 2MG TABLET PO PRN ×4 (10:47→22:16)
[2017-09-18 13:02] VITALS: BP 97/64
[2017-09-18] MEDS: OXYBUTYNIN CHLORIDE 5 MG TABLET PO SCH ×2 (14:30→21:07)
[2017-09-18] MEDS: VANCOMYCIN 1,300 MG in SODIUM CHLORIDE 0.9% 250 ML IV SCH (15:06)
[2017-09-18] MEDS: GABAPENTIN 300 MG CAPSULE PO SCH ×2 (16:14→21:07)
[2017-09-18 20:28] VITALS: BP 103/74
[2017-09-18] MEDS: DEXTROAMPHETAMINE HOMEMEDPO SCH (21:08)
[2017-09-18] MEDS: AMPHETAMINE HOMEMEDPO SCH (21:08)
[2017-09-19 01:45] VITALS: BP 91/52
[2017-09-19] MEDS: HYDROmorphone 2MG TABLET PO PRN ×6 (01:52→20:43)
[2017-09-19] MEDS: VANCOMYCIN 1,300 MG in SODIUM CHLORIDE 0.9% 250 ML IV SCH ×2 (03:10→15:06)
[2017-09-19] MEDS: ONDANSETRON 2MG/ML, 2ML IVPush PRN ×2 (04:54→20:44)
[2017-09-19] MEDS: ENOXAPARIN 40 MG/0.4 ML SQ SCH (04:58)
[2017-09-19 05:15] LABS: HEMATOCRIT 28.7 % (34.6-47.8); WHITE BLOOD COUNT 6.1 x10^3/uL (3.4-10)
[2017-09-19 05:39] LABS: BLOOD UREA NITROGEN 5 mg/dL (7-18)
[2017-09-19 07:05] VITALS: BP 96/52
[2017-09-19] MEDS: SODIUM CHLORIDE 0.9% 1,000 ML IV SCH ×2 (07:19→20:51)
[2017-09-19] MEDS: OXYBUTYNIN CHLORIDE 5 MG TABLET PO SCH ×3 (07:22→20:44)
[2017-09-19] MEDS: GABAPENTIN 300 MG CAPSULE PO SCH ×3 (07:22→20:44)
[2017-09-19] MEDS: AMPHETAMINE HOMEMEDPO SCH ×2 (07:23→20:52)
[2017-09-19] MEDS: DEXTROAMPHETAMINE HOMEMEDPO SCH ×2 (07:23→20:52)
[2017-09-19] MEDS: CEFTRIAXONE PMX 1GM/50ML 50 ML IV SCH (07:35)
[2017-09-19] MEDS: MUPIROCIN OINT 2%, 22GM TP SCH (08:25)
[2017-09-19] MEDS ORDERED: DIPHENHYDRAMINE 25 MG CAPSULE PO ONE (08:30)
[2017-09-19] MEDS: FLUCONAZOLE 400 MG/200 ML 200 ML IV SCH (12:08)
[2017-09-19 13:13] VITALS: BP 105/67
[2017-09-19] MEDS: PROMETHAZINE 25MG TABLET PO PRN (15:06)
[2017-09-19 19:38] VITALS: BP 133/70
[2017-09-20] MEDS: HYDROmorphone 2MG TABLET PO PRN ×5 (00:25→16:51)
[2017-09-20] MEDS: PROMETHAZINE 25MG TABLET PO PRN (03:04)
[2017-09-20] MEDS: VANCOMYCIN 1,300 MG in SODIUM CHLORIDE 0.9% 250 ML IV SCH ×2 (03:04→15:03)
[2017-09-20 03:22] VITALS: BP 111/77
[2017-09-20] MEDS: ENOXAPARIN 40 MG/0.4 ML SQ SCH (03:30)
[2017-09-20 05:24] LABS: HEMATOCRIT 30.2 % (34.6-47.8); HEMOGLOBIN 10.4 g/dL (11.7-16.4); WHITE BLOOD COUNT 6.3 x10^3/uL (3.4-10)
[2017-09-20 05:32] LABS: BLOOD UREA NITROGEN 4 mg/dL (7-18)
[2017-09-20 06:00] LABS: FERRITIN 66.7 ng/mL (8-252); TOTAL IRON BINDING CAPACITY 277 mcg/dL (250-450); TRANSFERRIN 209 mg/dL (200-360)
[2017-09-20] MEDS: GABAPENTIN 300 MG CAPSULE PO SCH ×3 (08:04→21:49)
[2017-09-20] MEDS: OXYBUTYNIN CHLORIDE 5 MG TABLET PO SCH ×3 (08:04→21:48)
[2017-09-20] MEDS: SODIUM CHLORIDE 0.9% 1,000 ML IV SCH (08:04)
[2017-09-20 08:06] VITALS: BP 105/63
[2017-09-20] MEDS: AMPHETAMINE HOMEMEDPO SCH ×2 (08:10→21:00)
[2017-09-20] MEDS: CEFTRIAXONE PMX 1GM/50ML 50 ML IV SCH (08:10)
[2017-09-20] MEDS: DEXTROAMPHETAMINE HOMEMEDPO SCH ×2 (08:10→21:00)
[2017-09-20] MEDS: MUPIROCIN OINT 2%, 22GM TP SCH (09:20)
[2017-09-20] MEDS ORDERED: POTASSIUM CHLORIDE 40 MEQ in SODIUM CHLORIDE 0.9% 500 ML IV ONE (13:00)
[2017-09-20] MEDS: FLUCONAZOLE 400 MG/200 ML 200 ML IV SCH (13:24)
[2017-09-20 14:05] VITALS: BP 111/72
[2017-09-20] MEDS: PHENAZOPYRIDINE 100 MG TABLET PO SCH ×2 (16:52→21:50)
[2017-09-20] MEDS ORDERED: POLYETHYLENE GLYCOL 17 GM PACKET PO PRN (17:00)
[2017-09-20 19:48] VITALS: BP 108/62
[2017-09-20] MEDS: OXYcodone/APAP 5/325MG TABLET PO PRN (21:47)
[2017-09-21 01:39] VITALS: BP 102/60
[2017-09-21] MEDS: SODIUM CHLORIDE 0.9% 1,000 ML IV SCH ×2 (02:21→09:40)
[2017-09-21] MEDS: VANCOMYCIN 1,300 MG in SODIUM CHLORIDE 0.9% 250 ML IV SCH (03:25)
[2017-09-21] MEDS: ENOXAPARIN 40 MG/0.4 ML SQ SCH (03:28)
[2017-09-21] MEDS: IBUPROFEN 200 MG TABLET PO PRN ×3 (03:28→14:02)
[2017-09-21 05:16] LABS: HEMATOCRIT 29.4 % (34.6-47.8); HEMOGLOBIN 10.3 g/dL (11.7-16.4)
[2017-09-21 05:31] LABS: BLOOD UREA NITROGEN 6 mg/dL (7-18)
[2017-09-21] MEDS: OXYBUTYNIN CHLORIDE 5 MG TABLET PO SCH ×2 (06:12→11:29)
[2017-09-21 08:33] VITALS: BP 116/67
[2017-09-21] MEDS: GABAPENTIN 300 MG CAPSULE PO SCH (08:42)
[2017-09-21] MEDS: MUPIROCIN OINT 2%, 22GM TP SCH (08:42)
[2017-09-21] MEDS: PHENAZOPYRIDINE 100 MG TABLET PO SCH (08:43)
[2017-09-21] MEDS: DEXTROAMPHETAMINE HOMEMEDPO SCH (08:43)
[2017-09-21] MEDS: CEFTRIAXONE PMX 1GM/50ML 50 ML IV SCH (08:43)
[2017-09-21] MEDS: AMPHETAMINE HOMEMEDPO SCH (08:43)
[2017-09-21] MEDS: OXYcodone/APAP 5/325MG TABLET PO PRN ×2 (08:44→13:04)
[2017-09-21] MEDS: ONDANSETRON 2MG/ML, 2ML IVPush PRN (11:29)
[2017-09-21] MEDS: FLUCONAZOLE 400 MG/200 ML 200 ML IV SCH (12:30)
[2017-09-21] MEDS ORDERED: PHEN-582 PO (12:48)
[2017-09-21] MEDS ORDERED: PROM25TA10 PO (12:48)
[2017-09-21] MEDS ORDERED: CEFU250T66 PO (12:48)
[2017-09-21] MEDS ORDERED: MUPI22OI2 TP (12:48)
[2017-09-21] MEDS ORDERED: SENN1TAB7 PO (12:48)
[2017-09-21] MEDS ORDERED: LINE600T37 PO (12:48)
[2017-09-21] MEDS ORDERED: OXYC1TAB7 PO (12:48)
[2017-09-21] MEDS ORDERED: IBUP-1484 PO (12:48)
[2017-09-21] MEDS ORDERED: GABA300C10 PO (12:48)
== END 2017-09-21 14:10 | disposition home or self-care (01) | DRG 690 ==
LOC: ED 23:38 → EDIP 09-18 02:22 → 4NOR 09-18 02:25
PROVIDERS: ADMIT Hospitalist; ATTEND Hospitalist
DX: N30.11 Interstitial cystitis (chronic) with hematuria (principal); F11.20 Opioid dependence, uncomplicated; L03.90 Cellulitis, unspecified; B95.2 Enterococcus as the cause of diseases classified elsewhere; B96.20 Unspecified Escherichia coli [E. coli] as the cause of diseases classified elsewhere; N32.89 Other specified disorders of bladder
CPT/HCPCS: 36415; 76770; 80048; 80053; 80202; 81001; 82306; 82607; 82728; 83540; 83550; 83735; 84100; 84466; 84703; 85025; 87070; 87077; 87086; 87106; 87186; 87205; 96365; 96367; 96375; 96376; J0295; J0696; J1170; J1450; J1885; J2405; J3370; J3480; Q0169; J7030; J7040; J7050; Q0163

== ENCOUNTER 2018-07-09 12:41 | Emergency (ER) | payer BC ==
[~2018-07-09] VITALS: Ht 170.2 cm; Wt 63.7 kg
[~2018-07-09 12:41] MED LIST changes: +CEFU250T66 PO; +DIPH25CA61 PO; +GABA300C10 PO; +GABA600T2 PO; +IBUP-1222 PO; +IBUP-1484 PO; +LINE600T37 PO; +MUPI22OI2 TP; +OXYC-432 PO; -OXYC1TAB9 PO; +PROM12.553 RC; +PROM25TA10 PO; -SENN1TAB7 PO; +SENN1TAB8 PO
[2018-07-09 13:31] LABS: BASOPHILS # (AUTO) 0.03 x10^3/uL (0-0.1); BASOPHILS % (AUTO) 0 % (0-1); EOSINOPHILS # (AUTO) 0.21 x10^3/uL (0-0.4); EOSINOPHILS % (AUTO) 2 % (1-7); LYMPHOCYTES # (AUTO) 1.61 x10^3/uL (1-3.4); LYMPHOCYTES % (AUTO) 18 % (22-44); MD NO; MEAN CORPUSCULAR HEMOGLOBIN 32.8 pg (27.0-34.8); MEAN CORPUSCULAR HGB CONC 33.7 g/dL (32.4-35.8); MEAN CORPUSCULAR VOLUME 97.3 fL (80-100); MEAN PLATELET VOLUME 7.4 fL (7.4-10.4); MONOCYTES # (AUTO) 0.54 x10^3/uL (0.2-0.8); MONOCYTES % (AUTO) 6 % (2-9); NEUTROPHILS # (AUTO) 6.81 x10^3/uL (1.8-6.8); NEUTROPHILS % (AUTO) 74 % (42-75); PLATELET COUNT 380 x10^3/uL (130-400); RED BLOOD COUNT 4.19 x10^6/uL (3.82-5.3); RED CELL DISTRIBUTION WIDTH 12.9 % (9.6-15.2)
[2018-07-09 13:39] LABS: ALBUMIN 4.3 g/dL (3.4-5.0); ANION GAP 7 mmol/L (5-15); CALCIUM 9.3 mg/dL (8.5-10.1); CHLORIDE 109 mmol/L (98-107)
[2018-07-09 16:02] LABS: HCG UR SG 1.008 (1.003-1.030)
[2018-07-09 16:07] LABS: CULTURE INDICATED? YES; MICROSCOPIC INDICATED
[2018-07-09] MEDS ORDERED: FENTANYL PF 100 MCG/2ML IV ONE (17:30)
[2018-07-09] MEDS ORDERED: SODIUM CHLORIDE FLUSH 10ML SYR IVF ONE (17:30)
[2018-07-09] MEDS ORDERED: FENTANYL PF 100 MCG/2ML ONE (17:58)
[2018-07-09] MEDS ORDERED: OMNIPAQUE 350 MG/ML, 100ML BOTTLE ONE (18:28)
[2018-07-09] MEDS ORDERED: ONDANSETRON ODT 4 MG ONE (19:34)
[2018-07-09] MEDS ORDERED: ONDANSETRON ODT 4 MG PO ONE (20:00)
[2018-07-09] MEDS ORDERED: HYDROmorphone 2 MG/ML, 1ML ONE (20:17)
[2018-07-09] MEDS ORDERED: HYDROmorphone 1 MG/ML, 1ML IV ONE (21:00)
[2018-07-09 22:19] VITALS: BP 121/68
== END 2018-07-09 23:20 | disposition home or self-care (01) ==
LOC: ED 19:12
DX: R33.9 Retention of urine, unspecified (principal); N30.00 Acute cystitis without hematuria
CPT/HCPCS: 36415; 74177; 76770; 80048; 81001; 81025; 82040; 85025; 87086; 96374; 96375; 99285; J1170; J3010; Q0162; Q9967; 87077; 87186